=== PATIENT | male | born 1965 | race Caucasian/White ===

== ENCOUNTER → 2023-05-05 11:58 | Outpatient (REF) | payer OTHER, SELFPAY | LOC: HWRAD 11:58 | PROVIDERS: ATTENDING PHYSICIAN Family Medicine | DX: M25.512 Pain in left shoulder (principal) | CPT/HCPCS: 73030 ==

== ENCOUNTER → 2023-05-21 08:14 | Outpatient (REF) | payer OTHER, SELFPAY | LOC: MRI 3T 08:14 | PROVIDERS: ATTENDING PHYSICIAN Orthopaedic Surgery; FAMILY PHYSICIAN Family Medicine | DX: M25.512 Pain in left shoulder (principal) | CPT/HCPCS: 73221 ==

== ENCOUNTER 2023-12-22 13:41 | Outpatient (RCR) | payer OTHER, SELFPAY | END 2023-12-22 23:59 | disposition home or self-care (01) | LOC: RPT 13:41 | PROVIDERS: ATTENDING PHYSICIAN Orthopaedic Surgery; FAMILY PHYSICIAN Family Medicine | DX: M75.02 Adhesive capsulitis of left shoulder (principal); M25.512 Pain in left shoulder; Z73.6 Limitation of activities due to disability; M62.81 Muscle weakness (generalized) | CPT/HCPCS: 97110; 97162; 97535 ==

== ENCOUNTER 2024-01-05 14:02 | Outpatient (RCR) | payer OTHER, SELFPAY | END 2024-01-05 23:59 | disposition home or self-care (01) | LOC: RPT 14:02 | PROVIDERS: ATTENDING PHYSICIAN Orthopaedic Surgery; FAMILY PHYSICIAN Family Medicine | DX: M75.02 Adhesive capsulitis of left shoulder (principal); M25.512 Pain in left shoulder | CPT/HCPCS: 97110 ==